=== PATIENT | female | born 1950 | race Caucasian/White ===

== ENCOUNTER → 2016-10-18 | Outpatient (CLI) | payer OTHER ==
--- NOTE | 2016-10-18 13:11 | MR ---
MR Abdomen Without Contrast With MR Cholangiopancreatography History: History of primary sclerosing cholangitis, abnormal liver enzymes. Comparison: MR abdomen May 21, 2016. Technique: Heavily T2-weighted images were obtained axially and coronally through the biliary ducts. Three-dimensional and multiplanar reconstructions were manipulated by the radiologist and reviewed at the computer. Findings: MRCP: MRCP sequences are limited by motion. There is grossly stable appearance of a beaded appearance of the intrahepatic and extrahepatic bile ducts with alternating areas of stricture and dilatation. Visualization of the common bile duct is limited, likely related to severe stricture, similar to the previous study. The filling defects are again noted in a dilated cystic duct, similar to the comparis on. The pancreatic duct is normal caliber. Abdomen: There is moderate motion artifact. There are no pleural or pericardial effusions. Heart size is normal. Nodular contour of the liver is noted with mild atrophy of the left lobe of the liver, un changed. The gallbladder is surgically absent. The visible portions of the spleen, pancreas, adrenals , and right kidney are normal. Parapelvic cysts are again noted in the left kidney. The visible bowel is normal caliber. There is incomplete visualization of what appears to be a small bowel containing paraumbilical hernia. The aorta is normal caliber. Degenerative change is present at L4-L5 with moder ate to severe spinal canal narrowing. Impression: 1. Grossly stable beaded appearance of the biliary tree, consistent with history of primary sclerosin g cholangitis. 2. Stable filling defects in the cystic duct, which could be related to stones or artifact. 3. Small bowel containing paraumbilical hernia, incompletely visualized. 4. Moderate to severe spinal canal narrowing at L4-L5, grossly stable. 5. Additional findings, as above.
== END ==
LOC: FIMAGING 06:46
PROVIDERS: ATTEND Internal Medicine Gastroenterology
DX: K82.8 Other specified diseases of gallbladder (principal); M48.06 Spinal stenosis, lumbar region

== ENCOUNTER → 2019-02-05 | Outpatient (CLI) | payer OTHER ==
[~2019-02-05] MED LIST: GADOBUTROL 10 ML VIAL IVP ONE
== END ==
LOC: FIMAGING 09:28
PROVIDERS: ATTEND Internal Medicine
DX: K74.60 Unspecified cirrhosis of liver (principal); R74.8 Abnormal levels of other serum enzymes
CPT/HCPCS: 74183; A9585; 82565-PO